=== PATIENT | female | born 1965 | race African-American/Black ===

== ENCOUNTER 2017-08-26 13:22 | Emergency (ER) | payer SELFPAY ==
[2017-08-26] MEDS ORDERED: Ibuprofen TAB* 800 MG PO ONE (16:02)
--- NOTE | 2017-08-26 16:09 | ED ---
Throat Pain/Nasal Congestion - HPI Summary HPI Summary: Pt here w/ dysphagia along Rt side of throat x 2 days. Pain radiates into ear and into neck at times. She is still able to drink and eat. Denies fever, chills , nasal congestion, sinus pain/pressure, sneezing/coughing, N/V/D, chest pain, ab pain, skin changes, stiff neck. She has not tried anything for her pain yet. Denies sick contacts other than a family member here to visit over the holidays with shingles. She denies h/o strep, mono. - History of Current Complaint Chief Complaint: EDNeckComplaint Time Seen by Provider: 08/26/17 15:47 Hx Obtained From: Patient - Allergies/Home Medications Allergies/Adverse Reactions: Allergies Allergy/AdvReac Type Severity Reaction Status Date / Time No Known Allergies Allergy Verified 08/26/17 13:59 PMH/Surg Hx/FS Hx/Imm Hx Previously Healthy: Yes Endocrine/Hematology History: Denies: Hx Thyroid Disease, Hx Anemia, Autoimmune Disease - Surgical History Surgery Procedure, Year, and Place: intrauterine fibroid removal. benign growth on head removed - Immunization History Immunizations Up to Date: Yes Infectious Disease History: Yes Infectious Disease History: Denies: Traveled Outside the [place] in Last 30 Days - Family History Known Family History: Positive: None - Social History Occupation: Employed Part-time Lives: With Family Alcohol Use: Occasionally Hx Substance Use: No Substance Use Type: Reports: None Hx Tobacco Use: No Smoking Status (MU): Never Smoked Tobacco Review of Systems Constitutional: Negative Negative: Fever, Chills, Fatigue Eyes: Negative Positive: Sore Throat, Ear Ache. Negative: Epistaxis, Dental Pain, Nasal Discharge Cardiovascular: Negative Respiratory: Negative Gastrointestinal: Negative Positive: no symptoms reported Musculoskeletal: Negative Skin: Negative Neurological: Negative Psychological: Normal All Other Systems Reviewed And Are Negative: Yes Physical Exam Triage Information Reviewed: Yes Vital Signs On Initial Exam: Initial Vitals Temp Pulse Resp BP Pulse Ox 98.1 F 91 15 137/81 100 08/26/17 13:59 08/26/17 13:59 08/26/17 13:59 08/26/17 13:59 08/26/17 13:59 Vital Signs Reviewed: Yes Appearance: Positive: Well-Appearing, No Pain Distress, Well-Nourished Skin: Positive: Warm, Dry - no ecchymosis/erythema/vesiscles along face/neck Head/Face: Positive: Normal Head/Face Inspection Eyes: Positive: Normal, EOMI, Conjunctiva Clear. Negative: Conjunctiva Inflammed, Discharge ENT: Positive: Hearing grossly normal, Pharyngeal erythema - mild, TMs normal, Tonsillar exudate - Rt side - B/L tonsils +1-2, cryptic, Uvula midline. Negative: Nasal congestion, Nasal drainage, Tonsillar swelling, Trismus, Muffled voice, Hoarse voice Neck: Positive: Supple, Nontender, No Lymphadenopathy Respiratory/Lung Sounds: Positive: Clear to Auscultation, Breath Sounds Present Cardiovascular: Positive: Normal, RRR, S1, S2. Negative: Murmur, Rub Abdomen Description: Positive: Nontender, No Organomegaly, Soft Bowel Sounds: Positive: Present Musculoskeletal: Positive: Normal, Strength/ROM Intact Neurological: Positive: Normal, Sensory/Motor Intact, Alert, Oriented to Person Place, Time, CN Intact II-III Psychiatric: Positive: Normal Diagnostics - Vital Signs Vital Signs Temp Pulse Resp BP Pulse Ox 08/26/17 13:59 98.1 F 91 15 137/81 100 - Laboratory Lab Statement: Any lab studies that have been ordered have been reviewed, and results considered in the medical decision making process. EENT Course/Dx - Course Course Of Treatment: Explained to pt this may be strep or viral pharyngitis. Offered starting anbx today or waiting for cx - pt agrees to wait for cx before starting anbx. Will implement conservative care and f/u if danger s/sx present. - Diagnoses Provider Diagnoses: Pharyngitis Discharge - Discharge Plan Condition: Stable Disposition: HOME Patient Education Materials: Pharyngitis (ED) Referrals: No Primary Care Phys,NOPCP [Primary Care Provider] - Additional Instructions: The definitive cause of your sore throat was not identified today. A culture will be sent to the lab for further testing. If it's positive, you will receive a phone call and antibiotics will be sent to your pharmacy. This may also be viral in nature. Treatments to aid in pain include: Throat gargle 2-3 x day with 8 ounces of warm water + 1/4 teaspoon of salt Drink 60+ ounces of water daily Sleep 8+ hours per night Avoid Dairy and sugar Hot herbal/decaf tea with lemon & honey Chicken broth (preferably organic, free range chicken) Humidifier in house, but especially near bed at night Ibuprofen with food Throat lozenges Consider taking Vitamin D3 5,000iu and Vitamin C 1,000mg every day during illness
[2017-08-26 17:01] VITALS: BP 136/76
== END 2017-08-26 17:02 | disposition home or self-care (01) ==
LOC: ED 13:22
DX: J02.9 Acute pharyngitis, unspecified (principal); H92.09 Otalgia, unspecified ear; R13.10 Dysphagia, unspecified
CPT/HCPCS: 87651; 99282

== ENCOUNTER 2018-02-01 13:20 | Emergency (ER) | payer OTHER ==
[2018-02-01 17:19] LABS: ABS Basophils 0.1 10^3/ul (0-0.2); ABS Eosinophils 0 10^3/ul (0-0.6); ABS Lymphocytes 0.6 10^3/ul (1.0-4.8); ABS Monocytes 0.3 10^3/ul (0-0.8); ABS Neutrophils 9.7 10^3/ul (1.5-7.7); ABS Nucleated RBC 0 10^3/ul; Eosinophil % 0.1 % (0-6); Hematocrit 41 % (35-47); Hemoglobin 13.5 g/dl (12.0-16.0); Lymphocyte % 5.5 % (25-47); Mean Corpuscular HGB Conc 33 g/dl (31-36); Mean Corpuscular Hemoglobin 28 pg (27-31); Mean Corpuscular Volume 86 fL (80-97); Mean Platelet Volume 8.5 um3 (7.4-10.4); Nucleated Red Blood Cells % 0; Platelet Count 174 10^3/ul (150-450); Red Blood Count 4.78 10^6/ul (4.0-5.4); Red Cell Distribution Width 13 % (10.5-15); White Blood Count 10.6 10^3/ul (3.5-10.8)
[2018-02-01 17:19] LABS: Urine Appearance Clear; Urine Blood 3+ (Negative); Urine Color Yellow; Urine Ketones Negative (Negative); Urine Protein Negative (Negative); Urine Specific Gravity 1.011 (1.010-1.030); Urine Urobilinogen Negative (Negative)
[2018-02-01 17:38] LABS: EGFR Non-African American 71.9 (>60)
--- NOTE | 2018-02-01 18:41 | RAD ---
INDICATION: Left flank pain COMPARISON: None TECHNIQUE: Noncontrast axial source images were acquired from the level hemidiaphragms to the symphysis pubis as part of CT imaging for renal stone. Lung bases: The lung bases are clear. Liver: The liver is normal in size. Noncontrast imaging shows no evidence of a hepatic mass or ductal dilatation. Gallbladder: There are no calcified gallstones. There is no evidence of wall thickening or pericholecystic fluid.. Spleen: The spleen is normal in size. The noncontrast CT appearance is normal. Pancreas: Noncontrast imaging shows no pancreatic mass or ductal dilitation. Adrenal glands: No masses are identified. Kidneys/Bladder: There are multiple bilateral renal calculi. There are proximally 6 calculi in the right and 3 calculi in the left. The calculi measure up to 0.6 cm. There are no definite ureteral calculi but there are multiple phleboliths which complicate absolutely excluding distal ureteral calculi. Adenopathy: There is no evidence of intraperitoneal or retroperitoneal adenopathy. Evaluation is limited without oral contrast. Fluid collections: There are no free or localized fluid collections. Vessels: The aorta and iliac vessels are normal in caliber. There are no significant atherosclerotic changes. The IVC appears normal Pelvic organs: There are uterine calcifications consistent with calcified fibroids. There is no adnexal mass. GI tract: Evaluation of the bowel is limited without oral contrast. The stomach, small bowel, and lower GI tract appear grossly normal. There are no obstructive findings. The appendix is visualized and appears normal. Soft tissues: No soft tissue abnormalities of the extraperitoneal abdomen or pelvis are identified. Osseous structures: There are no acute osseous findings. IMPRESSION: BILATERAL NEPHROLITHIASIS. NO DEFINITIVE URETERAL CALCULI. NO HYDRONEPHROSIS.
--- NOTE | 2018-02-01 19:02 | ED ---
Dean Dow Tenzin, scribed for Wei Stone MD on 02/01/18 at 1709 . Lower Extremity - HPI Summary HPI Summary: Pt is a 52 years old female presenting to the ED complaining of left flank pain and an episode of vomiting that started at 11:00 this morning. She describes the pain as constant, hot and "waves - almost like a spasm". She also complains of nausea. She denies dysuria and changes to her bowel movement. She took an ibuprofen at the clinic today for the pain. - History of Current Complaint Chief Complaint: EDFlankPain Stated Complaint: VOMITING WITH BACK PAIN Time Seen by Provider: 02/01/18 16:12 Hx Obtained From: Patient Hx Last Menstrual Period: End july Onset of Pain: Prior to Arrival - at 11:00 this morning Onset/Duration: Still Present Severity Initially: Moderate Severity Currently: Mild Pain Intensity: 8 Pain Scale Used: 0-10 Numeric Timing: Constant Aggravating Factor(s): Nothing - Allergies/Home Medications Allergies/Adverse Reactions: Allergies Allergy/AdvReac Type Severity Reaction Status Date / Time No Known Allergies Allergy Verified 02/01/18 13:23 Home Medications: Home Medications Multivitamins/Minerals TAB* [Theragran/minerals TAB*] 1 tab PO EVERY OTHER DAY 02/01/18 [History Confirmed 02/01/18] PMH/Surg Hx/FS Hx/Imm Hx Endocrine/Hematology History: Denies: Hx Thyroid Disease, Hx Anemia Opthamlomology History: Denies: Hx Legally Blind EENT History: Denies: Hx Deafness - Surgical History Surgery Procedure, Year, and Place: intrauterine fibroid removal. benign growth on head removed Infectious Disease History: No Infectious Disease History: Denies: Traveled Outside the [place] in Last 30 Days - Family History Known Family History: Positive: None, Other - Pt denies any relevant family history. - Social History Alcohol Use: Rare Hx Substance Use: No Substance Use Type: Reports: None Hx Tobacco Use: No Smoking Status (MU): Never Smoked Tobacco Review of Systems Positive: Vomiting, Nausea Positive: flank pain All Other Systems Reviewed And Are Negative: Yes Physical Exam - Summary Physical Exam Summary: Appearance: The patient is well-nourished in no acute distress and in no acute pain. Skin: The skin is warm and dry and skin color reflects adequate perfusion. HEENT: The head is normocephalic and atraumatic. The pupils are equal and reactive. The conjunctivae are clear and without drainage. Nares are patent and without drainage. Mouth reveals moist mucous membranes and the throat is without erythema and exudate. The external ears are intact. The ear canals are patent and without drainage. The tympanic membranes are intact. Neck: the neck is supple with full range of motion and non-tender. There are no carotid bruits. There is no neck vein distension. Respiratory: Chest is non-tender. Lungs are clear to auscultation and breath sounds are symmetrical and equal. Cardiovascular: Heart is regular rate and rhythm. There is no murmur or rub auscultated. There is no peripheral edema and pulses are symmetrical and equal. Abdomen: The abdomen is soft and non-tender. There are normal bowel sounds heard in all four quadrants and there is no organomegaly palpated. Musculoskeletal: There is no back tenderness noted. Extremities are non-tender with full range of motion. There is good capillary refill. There is no peripheral edema or calf tenderness elicited. Neurological: Patient is alert and oriented to person, place and time. The patient has symmetrical motor strength in all four extremities. Cranial nerves are grossly intact. Deep tendon reflexes are symmetrical and equal in all four extremities. Psychiatric: The patient has an appropriate affect and does not exhibit any anxiety or depression. Triage Information Reviewed: Yes Vital Signs On Initial Exam: Initial Vitals Temp Pulse Resp BP Pulse Ox 98.5 F 76 16 129/65 100 02/01/18 13:23 02/01/18 13:23 02/01/18 13:23 02/01/18 13:23 02/01/18 13:23 Vital Signs Reviewed: Yes Diagnostics - Vital Signs Vital Signs Temp Pulse Resp BP Pulse Ox 02/01/18 13:23 98.5 F 76 16 129/65 100 - Laboratory Lab Results: Lab Results 02/01/18 02/01/18 02/01/18 Range/Units 16:58 17:08 17:08 WBC 10.6 (3.5-10.8) 10^3/ul RBC 4.78 (4.0-5.4) 10^6/ul Hgb 13.5 (12.0-16.0) g/dl Hct 41 (35-47) % MCV 86 (80-97) fL MCH 28 (27-31) pg MCHC 33 (31-36) g/dl RDW 13 (10.5-15) % Plt Count 174 (150-450) 10^3/ul MPV 8.5 (7.4-10.4) um3 Neut % (Auto) 90.9 H (38-83) % Lymph % (Auto) 5.5 L (25-47) % [place] % (Auto) 2.8 (0-7) % Eos % (Auto) 0.1 (0-6) % Baso % (Auto) 0.7 (0-2) % Absolute Neuts (auto) 9.7 H (1.5-7.7) 10^3/ul Absolute Lymphs (auto) 0.6 L (1.0-4.8) 10^3/ul Absolute Monos (auto) 0.3 (0-0.8) 10^3/ul Absolute Eos (auto) 0 (0-0.6) 10^3/ul Absolute Basos (auto) 0.1 (0-0.2) 10^3/ul Absolute Nucleated RBC 0 10^3/ul Nucleated RBC % 0 Sodium 139 (139-145) mmol/L Potassium 4.4 (3.5-5.0) mmol/L Chloride 105 (101-111) mmol/L Carbon Dioxide 28 (22-32) mmol/L Anion Gap 6 (2-11) mmol/L BUN 13 (6-24) mg/dL Creatinine 0.83 (0.51-0.95) mg/dL Est GFR ( Amer) 92.5 (>60) Est GFR (Non-Af Amer) 71.9 (>60) BUN/Creatinine Ratio 15.7 (8-20) Glucose 98 (70-100) mg/dL Calcium 9.7 (8.6-10.3) mg/dL Total Bilirubin 0.60 (0.2-1.0) mg/dL AST 25 (13-39) U/L ALT 18 (7-52) U/L Alkaline Phosphatase 99 (34-104) U/L C-Reactive Protein < 1.00 (< 5.00) mg/L Total Protein 7.3 (6.4-8.9) g/dL Albumin 4.3 (3.2-5.2) g/dL Globulin 3.0 (2-4) g/dL Albumin/Globulin Ratio 1.4 (1-3) Urine Color Yellow Urine Appearance Clear Urine pH 8.0 (5-9) Ur Specific [place] 1.011 (1.010-1.030) Urine Protein Negative (Negative) Urine Ketones Negative (Negative) Urine Blood 3+ A (Negative) Urine Nitrate Negative (Negative) Urine Bilirubin Negative (Negative) Urine Urobilinogen Negative (Negative) Ur Leukocyte Esterase Trace A (Negative) Urine WBC (Auto) Trace(0-5/hpf) (Absent) Urine RBC (Auto) 3+(>10/hpf) A (Absent) Ur Squamous Epith Cells Present A (Absent) Urine Bacteria Absent (Absent) Urine Glucose Negative (Negative) Result Diagrams: 02/01/18 17:08 02/01/18 17:08 Lab Statement: Any lab studies that have been ordered have been reviewed, and results considered in the medical decision making process. - CT CT Abd/P CT Interpretation: Positive (See Comments) - IMPRESSION: BILATERAL NEPHROLITHIASIS. NO DEFINITIVE URETERAL CALCULI. NO HYDRONEPHROSIS. Dr. Stone reviewed the report. CT Interpretation Completed By: Radiologist Lower Extremity Course/Dx - Course Course Of Treatment: Ms. Vanegas has had left flank apin that sounded suspiciously like a kidney stone to me. Her exam was unremarkable and her labs WNL except that her U/A had a spot of blood in it so I got a CT. She has multiple kidney wtones but the radiologist was equivocal about whether or not there was a ureteral stone. I will treat her conservatively and she will F/U if not improved in a day or so. - Diagnoses Provider Diagnoses: Flank pain Discharge - Sign-Out/Discharge Documenting (check all that apply): Discharge/Admit/Transfer - Discharge Plan Condition: Stable Disposition: HOME Patient Education Materials: Flank Pain (ED) Forms: *Work Release Referrals: Mich Polanco MD [Medical Doctor] - 3 Days Jonatan Conley MD [Medical Doctor] - 3 Days Additional Instructions: Follow up urology in two to three days. I have given you referrals to Dr. Polanco and Dr. Conley, who are both urologists. Return to the emergency department for any new or worsening symptoms. - Billing Disposition and Condition Condition: STABLE Disposition: HOME The documentation as recorded by the scribe, Dolkar,Arias accurately reflects the service I personally performed and the decisions made by me, Wei Stone MD.
[2018-02-01 19:09] VITALS: BP 116/75
== END 2018-02-01 19:09 | disposition home or self-care (01) ==
LOC: ED 13:20
DX: M54.9 Dorsalgia, unspecified (principal); R11.2 Nausea with vomiting, unspecified; N20.0 Calculus of kidney
CPT/HCPCS: 36415; 74176; 80053; 81003; 81015; 85025; 86140; 87086; 99283

== ENCOUNTER 2018-05-02 11:05 | Emergency (ER) | payer MEDICAID, OTHER ==
[2018-05-02] MEDS ORDERED: Tetan/Diph/Pertus SYR(Tdap)* 0.5 ML SYR(BOOSTRIX) use SYR IM ONE (12:00)
[2018-05-02 12:45] VITALS: BP 115/73
--- NOTE | 2018-05-02 14:13 | ED ---
Head Injury - HPI Summary HPI Summary: Patient is a 52-year-old female who presents emergency department for evaluation of a facial wound that occurred 2 days ago. Patient states she was on a mission trip and [place] over the weekend. On Tuesday she states she was helping someone out of a car when it was raining when the door slipped and the upper corner of the door hit her on the right below her eye. Patient states she did not fall backwards and strike her head. She denies loss of consciousness. Patient states she return to the area today wanted to get checked out that she was still having facial pain and a headache. She is no past medical history. Denies associated symptoms of nausea, vomiting, visual changes, any pain, numbness, tingling or weakness. Symptoms are mild in severity. Patient states her last tetanus immunization was 10 years ago. Touching face makes symptoms worse. Rest makes symptoms better. - History Of Current Complaint Chief Complaint: EDHeadInjury Stated Complaint: HEAD INJURY Time Seen by Provider: 05/02/18 11:45 Hx Obtained From: Patient Hx Last Menstrual Period: End july Pain Intensity: 4 Pain Scale Used: 0-10 Numeric - Allergies/Home Medications Allergies/Adverse Reactions: Allergies Allergy/AdvReac Type Severity Reaction Status Date / Time No Known Allergies Allergy Verified 02/01/18 13:23 PMH/Surg Hx/FS Hx/Imm Hx Previously Healthy: Yes Endocrine/Hematology History: Denies: Hx Thyroid Disease, Hx Anemia Sensory History: Denies: Hx Legally Blind, Hx Deafness Opthamlomology History: Denies: Hx Legally Blind - Surgical History Surgery Procedure, Year, and Place: intrauterine fibroid removal. benign growth on head removed Infectious Disease History: No Infectious Disease History: Denies: Traveled Outside the [place] in Last 30 Days - Family History Known Family History: Positive: None, Other - Pt denies any relevant family history. - Social History Occupation: Employed Full-time Lives: With Family Alcohol Use: Rare Hx Substance Use: No Substance Use Type: Reports: None Hx Tobacco Use: No Smoking Status (MU): Never Smoked Tobacco Review of Systems Eyes: Negative ENT: Negative Gastrointestinal: Negative Negative: Vomiting, Nausea Positive: Other - facial abrasion Positive: Headache All Other Systems Reviewed And Are Negative: Yes Physical Exam Triage Information Reviewed: Yes Vital Signs On Initial Exam: Initial Vitals Temp Pulse Resp BP Pulse Ox 97.8 F 97 16 118/79 100 05/02/18 11:08 05/02/18 11:08 05/02/18 11:08 05/02/18 11:08 05/02/18 11:08 Vital Signs Reviewed: Yes Appearance: Positive: Well-Appearing - Pt. sitting on bed in NAD. Pleasant. Skin: Positive: Warm, Dry Head/Face: Positive: Other - Superficial, less than 1 cm abrasion noted inferior to the right thigh. Tenderness surrender. No ecchymosis or edema. Eyes: Positive: Normal - No pain with extraocular muscle movement., EOMI, YULIANA, Conjunctiva Clear ENT: Positive: TMs normal. Negative: Nasal congestion, Nasal drainage Neck: Positive: Supple - No midline tenderness Neurological: Positive: Normal, Alert, Oriented to Person Place, Time, CN Intact II-III Psychiatric: Positive: Affect/Mood Appropriate - Sandra Coma Scale Best Eye Response: 4 - Spontaneous Best Motor Response: 6 - Obeys Commands Best Verbal Response: 5 - Oriented Coma Scale Total: 15 Diagnostics - Vital Signs Vital Signs Temp Pulse Resp BP Pulse Ox 05/02/18 12:44 98.0 F 75 16 115/73 98 05/02/18 11:08 97.8 F 97 16 118/79 100 - Laboratory Lab Statement: Any lab studies that have been ordered have been reviewed, and results considered in the medical decision making process. Head Injury Course/Dx Course Of Treatment: Patient being evaluated for minor facial injury that occurred 2 days ago. She has no neurological deficits. 3 was very minor and suspicion for facial fractures extremely low. Patient is comfortable with insertive treatment. Tetanus was updated. Advised to keep wound clean and dry. Ice intermittently. Tylenol or Motrin for pain as directed. To follow- up with the [facility]. Return to ER if symptoms change or worsen. Patient understands and agrees with plan. - Diagnoses Differential Diagnosis/HQI/PQRI: Cervical Sprain, Concussion Without LOC, Zygomatic Fracture Provider Diagnoses: Facial contusion, Facial abrasion Discharge - Sign-Out/Discharge Documenting (check all that apply): Patient Departure - Discharge Plan Condition: Good Disposition: HOME Patient Education Materials: Concussion (ED), Acute Wound Care (ED), Facial Contusion (ED) Referrals: [facility] [Outside] No Primary Care Phys,NOPCP [Primary Care Provider] - Additional Instructions: Call the [facility] to schedule a follow up appointment Keep wound clean and dry Ice intermittently NSAIDS for pain as directed Return to ER if symptoms change or worsen - Billing Disposition and Condition Condition: GOOD Disposition: Home
== END 2018-05-02 12:14 | disposition home or self-care (01) ==
LOC: ED 11:05
DX: S00.81XA Abrasion of other part of head, initial encounter (principal); S00.83XA Contusion of other part of head, initial encounter; W22.8XXA Striking against or struck by other objects, initial encounter; Y92.9 Unspecified place or not applicable; Z23 Encounter for immunization
CPT/HCPCS: 90471; 90715; 99281

== ENCOUNTER 2018-07-16 17:36 | Emergency (ER) | payer OTHER, MEDICAID ==
[2018-07-16 17:48] VITALS: BP 131/73
--- NOTE | 2018-07-16 18:23 | UC ---
Ear Complaint HPI - HPI Summary HPI Summary: 53 yo patient c/o her left ear feels blocked and attempted otc to clear ear without sucess. Pt states feeling began 07/12/18. Pt states it feels like ear is even more clogged today after instilling drops. She also has had nasal congestion and some postnasal drip but no facial pain, fever or chills. - History of Current Complaint Chief Complaint: UCEar Stated Complaint: BILATERAL EAR COMPLAINT Time Seen by Provider: 07/16/18 18:02 Hx Obtained From: Patient Hx Last Menstrual Period: End of July Onset/Duration: Sudden Onset Severity Initially: Moderate Severity Currently: None Pain Intensity: 0 Alleviating Factors: Nothing Associated Signs/Symptoms: Positive: Hearing Loss - Allergies/Home Medications Allergies/Adverse Reactions: Allergies Allergy/AdvReac Type Severity Reaction Status Date / Time No Known Allergies Allergy Verified 07/16/18 17:43 PMH/Surg Hx/FS Hx/Imm Hx Previously Healthy: Yes - Surgical History Surgical History: Yes Surgery Procedure, Year, and Place: intrauterine fibroid removal. benign growth on head removed - Family History Known Family History: Positive: Hypertension, Diabetes - Social History Alcohol Use: None Substance Use Type: None Smoking Status (MU): Never Smoked Tobacco Review of Systems ENT: Ear Ache, Nasal Discharge, Sinus Congestion All Other Systems Reviewed And Are Negative: Yes Physical Exam Triage Information Reviewed: Yes Appearance: Well-Appearing, No Pain Distress, Well-Nourished Vital Signs: Initial Vital Signs Temp 98.7 F 07/16/18 17:44 Pulse 85 07/16/18 17:44 Resp 18 07/16/18 17:44 BP 131/73 07/16/18 17:44 Pulse Ox 100 07/16/18 17:44 Vital Signs Reviewed: Yes Eyes: Positive: Conjunctiva Clear ENT: Positive: Normal ENT inspection, Hearing grossly normal, Pharynx normal, TM dull - right, Other - cerumen left Neck: Positive: Supple, Nontender, No Lymphadenopathy Respiratory: Positive: Chest non-tender, Lungs clear, Normal breath sounds, No respiratory distress Cardiovascular: Positive: RRR, No Murmur, Pulses Normal, Brisk Capillary Refill Abdomen Description: Positive: Nontender, No Organomegaly, Soft Bowel Sounds: Positive: Present Musculoskeletal: Positive: Strength Intact, No Edema Ear Complaint Course/Dx - Course Course Of Treatment: left cerumen impaction, irrigation performed. Right eustachian tube dysfunction, instructed to use allegraD or claritinD when needed in the morning along with flonase nasal spray. referred to PCP for f/u care in 1-2 weeks - Differential Dx/Diagnosis Provider Diagnoses: cerumen impaction. eustachian tube dysfunction Discharge - Sign-Out/Discharge Documenting (check all that apply): Patient Departure All imaging exams completed and their final reports reviewed: No Studies - Discharge Plan Condition: Stable Disposition: HOME Patient Education Materials: Cerumen Impaction (ED), Serous Otitis Media (ED), Fluticasone (Into the nose) Referrals: No Primary Care Phys,NOPCP [Primary Care Provider] - [facility] [Outside] - Billing Disposition and Condition Condition: STABLE Disposition: Home
== END 2018-07-16 19:00 | disposition home or self-care (01) ==
LOC: UCEAST 17:36
DX: H61.22 Impacted cerumen, left ear (principal); H69.90 Unspecified Eustachian tube disorder, unspecified ear
CPT/HCPCS: 99213; G0463

== ENCOUNTER 2019-12-16 11:24 | Emergency (ER) | payer OTHER ==
[2019-12-16 12:21] VITALS: BP 168/69
[2019-12-16 12:30] LABS: Influenza A Molecular Negative (Negative); Influenza B Molecular Negative (Negative)
--- NOTE | 2019-12-16 12:43 | UC ---
Respiratory Complaint HPI - HPI Summary HPI Summary: The patient is a 54-year-old female who was exposed to someone with Covid 19 on or about 12/03/19. She states she received a call from the health Department today telling her she needed to come here to be tested. She is completely symptom-free. She teaches college. She denies any fever or cough or shortness of breath. - History of Current Complaint Chief Complaint: UCGeneralIllness Stated Complaint: RESPIRATORY ISSUE Time Seen by Provider: 12/16/19 11:50 Hx Obtained From: Patient Hx Last Menstrual Period: End july Onset/Duration: Other - NA Severity Currently: None Pain Intensity: 0 Aggravating Factors: Other - NA Alleviating Factors: Other - NA Associated Signs And Symptoms: Negative: Dyspnea, Fever, Chills, Pleuritic Chest Pain, Wheezing, Hemoptysis, Dizziness, Calf Pain, Calf Swelling, Edema, URI, Nasal Congestion, Hoarseness, Sinus Discomfort - Allergies/Home Medications Allergies/Adverse Reactions: Allergies Allergy/AdvReac Type Severity Reaction Status Date / Time No Known Allergies Allergy Verified 12/16/19 12:00 Home Medications: Home Medications NK [No Home Medications Reported] 12/16/19 [History Confirmed 12/16/19] PMH/Surg Hx/FS Hx/Imm Hx Previously Healthy: Yes - Surgical History Surgical History: Yes Surgery Procedure, Year, and Place: intrauterine fibroid removal. benign growth on head removed - Family History Known Family History: Positive: None, Hypertension, Diabetes, Other - Pt denies any relevant family history. - Social History Alcohol Use: Occasionally Substance Use Type: None Smoking Status (MU): Never Smoked Tobacco Review of Systems All Other Systems Reviewed And Are Negative: Yes Constitutional: Positive: Negative Skin: Positive: Negative Eyes: Positive: Negative ENT: Positive: Negative Respiratory: Positive: Negative Cardiovascular: Positive: Negative Gastrointestinal: Positive: Negative Genitourinary: Positive: Negative Motor: Positive: Negative Neurovascular: Positive: Negative Musculoskeletal: Positive: Negative Neurological/Mental Status: Positive: Negative Psychological: Positive: Negative Physical Exam Triage Information Reviewed: Yes Appearance: Well-Appearing, No Pain Distress, Well-Nourished Vital Signs: Initial Vital Signs Temp 97.9 F 12/16/19 12:20 Pulse 92 12/16/19 12:20 Resp 18 12/16/19 12:20 BP 168/69 12/16/19 12:20 Pulse Ox 98 12/16/19 12:20 Vital Signs Reviewed: Yes Eyes: Positive: Conjunctiva Clear ENT: Positive: Hearing grossly normal, Uvula midline. Negative: Nasal congestion, Nasal drainage, Trismus, Muffled voice, Hoarse voice Dental Exam: Normal Neck: Positive: Supple, Nontender, No Lymphadenopathy Respiratory: Positive: Lungs clear, Normal breath sounds, No respiratory distress Cardiovascular: Positive: RRR, No Murmur Musculoskeletal: Positive: ROM Intact, No Edema Neurological: Positive: Alert Psychological Exam: Normal Skin Exam: Normal Diagnostics - Laboratory Lab Results: influenza (-) Respiratory Course/Dx - Differential Dx/Diagnosis Provider Diagnosis: Exposure to COVID-19 virus, Elevated BP without diagnosis of hypertension Discharge ED - Sign-Out/Discharge Documenting (check all that apply): Patient Departure All imaging exams completed and their final reports reviewed: No Studies - Discharge Plan Condition: Stable Disposition: HOME Forms: COVID-19 Tested & Isolation Referrals: [facility] [Outside] - If Needed Additional Instructions: the Health dept will notify you about your results see information about isolation OF NOTE- your blood pressure reading was high here this should be rechecked within a month or so - Billing Disposition and Condition Condition: STABLE Disposition: Home
== END 2019-12-16 12:45 | disposition home or self-care (01) ==
LOC: UCEAST 11:24
DX: Z20.828 Contact with and (suspected) exposure to other viral communicable diseases (principal); R03.0 Elevated blood-pressure reading, without diagnosis of hypertension
CPT/HCPCS: 87635; 99212; G0463